=== PATIENT | female | born 1960 | race Caucasian/White ===

== ENCOUNTER 2016-10-11 16:59 | Inpatient (IN) | payer OTHER ==
--- NOTE | ~2016-10-11 | EKG ---
PATIENT: ALEXEY BELL UNIT #: [id number] Ventricular Rate: 114 BPM Atrial Rate: 114 BPM P-R Interval: 172 ms QRS Duration: 70 ms Q-T Interval: 330 ms QTC Calculation(Bezet): 454 ms P [place]: 67 degrees Calculated R [place]: 27 degrees Calculated T [place]: 44 degrees Diagnosis Line: Sinus tachycardia Diagnosis Line: Biatrial enlargement Diagnosis Line: Abnormal ECG Diagnosis Line: When compared with ECG of 07-JUN-2009 22:17, Diagnosis Line: No significant change was found Diagnosis Line: Confirmed by DEEPALI EVANS MD ([id number]) on Diagnosis Line: 10/12/2016 8:10:07 AM INTERPRETING MD: CRISTINA SHETTY
--- NOTE | ~2016-10-11 | CR72 ---
[facility] A Service of [facility] & [facility] RADIOLOGY TEXT RESULTS PATIENT: ALEXEY BELL LOCATION: [facility] 324- : 60 UNIT #: [id number] AGE: [address]: Nupur Champion MD SEX: F ORDER DR: [id number] [facility] [address] [facility]. [place], [place] [address] [id number] I MR#: [id number] Acc #: [id number] NAME: ALEXEY BELL. : 1960 SEX: F STUDY DATE/TIME: 10/11/2016 18:01 UNIT: CEDOF ROOM: [facility] STUDY DESCRIPTION: CR Chest Single View Portable Attending Physician: Nupur Champion M.D. Ordering Physician: Edi Xiong M.D. Primary Care Physician: Primary Care Physician No MEDICAL IMAGING REPORT This report is preliminary unless electronic signature is present EXAM Frontal chest, 10/11/2016 INDICATIONS 56-year-old female with shortness of air since yesterday. Tobacco abuse 30 years. TECHNIQUE Frontal chest compared with 06/07/2009. FINDINGS Cardiac silhouette is within normal limits. The vascularity is normal. Lungs clear. No pneumothorax or effusion. IMPRESSION 1. Negative frontal chest. Dictated by... Luis Correa M.D. THIS IS AN ELECTRONICALLY VERIFIED REPORT Luis Correa M.D. at 10/11/2016 9:38 PM RAFAT/tim TD: 10/11/2016 20:46 JOB #: [id number] MEDICAL IMAGING REPORT Page 1 of 1 COPY
--- NOTE | ~2016-10-11 | HP ---
Unit #: [id number] #: [id number] Patient: ALEXEY BELL [id number] [address] [place], [place] [address] [id number] MR#: [id number] NAME: ALEXEY BELL. ROOM: 324 Age: 56 Sex: F Admission Date: 10/11/2016 : 1960 Attending Physician: Nupur Champion M.D. HISTORY AND PHYSICAL REASON FOR ADMISSION Acute hypoxic respiratory failure. HISTORY OF PRESENT ILLNESS Patient is a very pleasant 56-year-old female who resides in [place], [place], and was visiting her friend here in [place] when she began developing cough and congestion, as well as difficulty with breathing. She states that in the past she has had similar episodes and was treated as an outpatient diagnosed with acute bronchitis and given steroids, as well as appropriate outpatient aerosols and/or breathing treatments but had never been formally hospitalized. She presented to the ER here where it was noted her O2 saturations were in the mid to upper 80s. She received Solu-Medrol, as well as several aerosol treatments, and she did not show any improvement. Her O2 saturations remained low, and therefore, she is being admitted to the same. 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 She is well aware of the harmful dangers of smoking. However, she states that in the past, every time that she has tried to quit, she has developed increased anxiety and/or panic attacks; therefore, she has reverted back to smoking on a daily basis. She has no formal history of being placed on a ventilator secondary to acute respiratory failure, and she denies any prior hospital admissions. She also states that she has never been formally diagnosed with COPD in the past. PAST MEDICAL HISTORY 1. Hypertension. 2. Diabetes. PAST SURGICAL HISTORY Tubal ligation. HOME MEDICATIONS 1. Prinivil. 2. Metformin. 3. Aspirin. 4. Hydrocodone. 5. Diclofenac. ALLERGIES Keflex, codeine, valsartan. Unit #: [id number] #: [id number] Patient: ALEXEY BELL FAMILY HISTORY Reviewed and noncontributory or non-pertinent. SOCIAL HISTORY Positive one to one and a half packs of cigarettes per day. Positive social alcohol use. Patient denies any recreational drug use. REVIEW OF SYSTEMS Please see History of Present Illness. A 12-point review is otherwise negative except for those positive and noted in the HPI. PHYSICAL EXAMINATION VITAL SIGNS: Temperature 99.3, pulse 115, respiratory rate 16, and blood pressure 125/58. GENERAL APPEARANCE: Patient is a 56-year-old female currently sitting up in the tripod position. She was using some accessory muscles for breathing. HEAD: Atraumatic and normocephalic. EARS: Tympanic membranes do not reveal any erythema or injection. NECK: Accessory muscle use noted. No carotid bruits. No JVD. CARDIOVASCULAR: S1 and S2, tachycardic, without murmur. RESPIRATORY: Bilateral wheezing. Prolonged expiration. GASTROINTESTINAL/ABDOMEN: Distention noted but nontender. LOWER EXTREMITIES: No evidence of any lower extremity edema. NEUROLOGIC: Alert and oriented x3. No evidence of any focal nerve deficits. PSYCHIATRIC: Patient demonstrates normal mood and affect. DIAGNOSTIC STUDIES INITIAL LABORATORY: BNP at 38. Cardiac enzymes negative. Blood glucose 248. White count 12.3 and hemoglobin 15.5. IMAGING: Chest x-ray performed in the ER shows no acute process. INITIAL ADMISSION DIAGNOSES 1. Acute hypoxic respiratory failure. 2. Acute exacerbation of chronic obstructive pulmonary disease. 3. Hyperglycemia. 4. Prior history of type 2 diabetes. 5. Hypertension. 6. Obesity. 7. Ongoing tobacco abuse. PLAN Admission to telemetry floor. IV Solu-Medrol, IV antibiotics, and DuoNeb aerosol solution with albuterol q.2 p.r.n. Will initiate IV doxycycline for now. Routine Accu-Cheks. NovoLog low-dose sliding scale insulin. Routine laboratory studies in the a.m. Further hospital course to follow. The plans have been reviewed with patient in detail. She expresses understanding and agreement. Patient states that she wishes to be a Full Code. Dictated by Homa Castillo Unit #: [id number] #: [id number] Patient: ALEXEY BELL TD: 10/11/2016 21:44 JOB #: [id number] HISTORY AND PHYSICAL Page 1 of 1 X Nupur Champion MD HISTORY AND PHYSICAL
--- NOTE | ~2016-10-11 | DS ---
Unit #: [id number] #: [id number] Patient: ALEXEY BELL [id number] [address] [address] [id number] I MR#: [id number] NAME: ALEXEY BELL. ROOM: 324 Age: 56 Sex: F Admission Date: 10/11/2016 : 1960 Discharge Date: Attending Physician: Saskia Mina M.D. Primary Care Physician: No Primary Care Physician DISCHARGE SUMMARY DISCHARGE DIAGNOSES 1. Acute hypoxic respiratory failure. 2. Acute chronic obstructive pulmonary disease with exacerbation. 3. Diabetes mellitus type 2, uncontrolled secondary to steroids. 4. Hypertension. 5. Obesity. 6. Ongoing smoking. CONSULTATIONS None. PROCEDURES None. DIAGNOSTIC TESTING LAB DATA: Glucose 402. Free T4 is 0.78, free T3 is 2.6. Hemoglobin A1C 7.7. Creatinine 0.8. TSH 0.33. BNP 38. ALLERGIES Codeine, cephalexin, valsartan. DISCHARGE MEDICATIONS 1. Albuterol 2.5 mg q.4 p.r.n. shortness of breath. 2. Metformin 500 daily. 3. Nicotine 21 mg transdermal daily. 4. Lisinopril 10 daily. 5. Levemir 8 units subcu daily. 6. Aspirin 81 daily. 7. Doxycycline 100 p.o. b.i.d. 8. Symbicort 160 mcg inhalation 2 puffs b.i.d. 9. Albuterol MDI 2 puffs inhalation q.i.d. 10. Prednisone tapering dose. HOSPITALIZATION COURSE A 56 year old admitted because of shortness of breath. Acute hypoxic respiratory failure from COPD. Patient was requiring 2 liters. Currently she is saturating 95% on room air. Patient does not need home O2. COPD with exacerbation, most likely from smoking. Patient reviewed IV Solu-Medrol, DuoNeb, Symbicort. Currently lungs are clear. Patient will be discharged on albuterol, Symbicort, prednisone tapering dose and doxycycline. Unit #: [id number] #: [id number] Patient: ALEXEY BELL Abnormal TSH. T3 and T4 are normal. Most likely subclinical. Diabetes mellitus type 2, uncontrolled secondary to steroids. Patient was on metformin. Patient received Levemir. Her sugars are still high. She will continue with Levemir at home. I gave prescription. I gave prescription for Accu-Cheks machine. Discussed with leather case finisher. They will help her with home medications, as she does not have insurance. High risk of readmission because of smoking. DISCHARGE PLAN 1. Discharge home. 2. Follow with family physician in 1 week's time. NOTE: Discharge time taken is 35 minutes. Dictated by... Saskia Mina M.D. ARIANNA/ric TD: 10/13/2016 15:46 JOB #: [id number] DISCHARGE SUMMARY Page 1 of 1 X Saskia Mina MD X DISCHARGE SUMMARY
[~2016-10-11 16:59] MED LIST: ALBUTEROL 0.5ML INH; ASPIRIN81 M2 PO; LEVAQUIN PO; LORTAB 5-325 M1 EACH PO; METFORMIN HCL500 M1 PO; PREDNISONE PO; PRINIVIL20 M1 PO; TUSSIN MAX15 MG/5 M1 PO; VOLTAREN75 MG PO
[2016-10-11 18:20] LABS: BASOPHIL% 0.3 % (0-2.5); EOSINOPHIL# 0.1 X10e3 (0-0.7); EOSINOPHIL% 0.4 % (0.0-7.0); HEMATOCRIT 46.5 % (35.0-45.0); HEMOGLOBIN 15.5 gm/dL (12.0-16.0); LYMPHOCYTE# 0.6 X10e3 (1.0-3.5); LYMPHOCYTE% 4.7 % (17.0-45.0); MEAN CELL VOLUME 83.8 FL (83-96); MEAN CORPUSCULAR HEMOGLOBIN 27.9 PG (28-34); MEAN CORPUSCULAR HGB CONC 33.3 g/dL (30-36); MEAN PLATELET VOLUME 8.7 FL (6.5-11.5); MONOCYTE# 0.3 X10e3 (0-1.0); MONOCYTE% 2.3 % (3.0-12.0); NEUTROPHIL# 11.3 X10e3 (1.5-7.1); NEUTROPHIL% 92.3 % (40-75); PLATELET COUNT 237 X10e3 (140-420); RED BLOOD COUNT 5.54 X10e (3.90-5.30); RED CELL DISTRIBUTION WIDTH 13.5 % (11.0-15.5); WHITE BLOOD COUNT 12.3 X10e3 (4.0-10.5)
[2016-10-11 18:22] LABS: DIFF IND NO
[2016-10-11 18:37] LABS: BUN/CREATININE RATIO 11.42; CALCIUM SERUM 9.1 mg/dL (8.4-10.2); CREATININE SERUM 0.7 mg/dL (0.6-1.4); GLOM FILT RATE Estimated 96.9 mL/min (>60); POTASSIUM 4.2 mmol/L (3.5-5.1)
[2016-10-11 19:05] LABS: POC - CKMB <1.0 ng/mL (0.0-7.9); POC - TROPONIN <0.05 ng/mL (<=0.05)
[2016-10-11] MEDS ORDERED: LISINOPRIL10 MG PO (20:44)
[2016-10-12 05:47] LABS: HEMATOCRIT 45.2 % (35.0-45.0); HEMOGLOBIN 14.6 gm/dL (12.0-16.0); MEAN CELL VOLUME 85.6 FL (83-96); MEAN CORPUSCULAR HEMOGLOBIN 27.7 PG (28-34); MEAN CORPUSCULAR HGB CONC 32.4 g/dL (30-36); MEAN PLATELET VOLUME 8.8 FL (6.5-11.5); RED BLOOD COUNT 5.28 X10e (3.90-5.30); RED CELL DISTRIBUTION WIDTH 13.5 % (11.0-15.5); WHITE BLOOD COUNT 6.3 X10e3 (4.0-10.5)
[2016-10-12 07:00] LABS: CALCIUM SERUM 9.3 mg/dL (8.4-10.2); CREATININE SERUM 0.8 mg/dL (0.6-1.4); GLOM FILT RATE Estimated 82.5 mL/min (>60); MAGNESIUM 2.2 mg/dL (1.6-3.0); POTASSIUM 4.4 mmol/L (3.5-5.1)
[2016-10-12 12:01] LABS: FREE T3 2.6 pg/mL (2.5-3.9)
[2016-10-12 12:03] LABS: FREE THYROXIN (T4) 0.78 ng/dL (0.58-1.64)
[2016-10-13] MEDS ORDERED: ALBUTEROL MININEB NEB (15:48)
[2016-10-13] MEDS ORDERED: NICOTINE PATCH1 EACH TD (15:49)
[2016-10-13] MEDS ORDERED: LEVEMIR100 UNITS/ SUBQ (15:51)
[2016-10-13] MEDS ORDERED: DOXYCYCLINE PO (15:52)
[2016-10-13] MEDS ORDERED: BAYER CHEWABLE81 MG PO (15:52)
[2016-10-13] MEDS ORDERED: SYMBICORT INH (15:57)
[2016-10-13] MEDS ORDERED: ALBUTEROL20 ml INH (15:59)
[2016-10-13] MEDS ORDERED: PREDNISONE PO (16:01)
== END 2016-10-13 19:35 | disposition home or self-care (01) | DRG 189 ==
LOC: CED 16:59 → CEDOF 20:13 → C3A PCU 20:13 → CEDOF 20:43 → CED 20:43 → C3A PCU 21:36 → CEDOF 21:36 → C3A PCU 10-12 07:40
PROVIDERS: Emergency Medicine; Family Medicine; Internal Medicine
DX: J96.01 Acute respiratory failure with hypoxia (principal); J44.0 Chronic obstructive pulmonary disease with (acute) lower respiratory infection; J44.1 Chronic obstructive pulmonary disease with (acute) exacerbation; J20.9 Acute bronchitis, unspecified; E11.65 Type 2 diabetes mellitus with hyperglycemia; Z79.84 Long term (current) use of oral hypoglycemic drugs; I10 Essential (primary) hypertension; E66.9 Obesity, unspecified; Z68.30 Body mass index [BMI] 30.0-30.9, adult; F17.210 Nicotine dependence, cigarettes, uncomplicated; Z98.51 Tubal ligation status; Z88.5 Allergy status to narcotic agent; Z88.1 Allergy status to other antibiotic agents; Z88.8 Allergy status to other drugs, medicaments and biological substances
CPT/HCPCS: 36415; 71010; 80048; 82553; 82947; 83036; 83735; 83880; 84439; 84443; 84481; 84484; 85025; 85027; 93005; 94640; 94664; 94760; 96374; 99285; J1815; J2920; J2930